=== PATIENT | male | born 1995 | race Hispanic/Latino ===

== ENCOUNTER 2018-07-20 07:36 | Emergency (ER) | payer OTHER ==
--- NOTE | 2018-07-20 09:39 | RAD REPORT ---
EXAM DESCRIPTION: RAD - Lumbar Spine 3 Views - 07/20/2018 8:22 am CLINICAL HISTORY: Back pain FINDINGS: The alignment of the lumbar spine is satisfactory. Mild compression fracture involves the superior endplate of the T12 vertebral body. It has developed since 2010. No fracture or dislocation involving the lumbar spine
--- NOTE | 2018-07-20 09:53 | EDPHYS ---
Physician Documentation [facility] Name: Kolby Martell III Age: 23 yrs Sex: Male : 1995 Arrival Date: 07/20/2018 Time: 07:42 Bed 23 Private MD: None, None ED Physician Mauricio Rodriguez HPI: 07/20 07:56 This 23 yrs old Male presents to ER via Ambulatory with complaints of Low Back rn Pain. 07:56 The patient presents with pain that is acute, and an injury. The symptoms are located rn in the low back. The pain does not radiate. Onset: The symptoms/episode began/occurred just prior to arrival. Associated signs and symptoms: Pertinent negatives: abdominal pain, chest pain, constipation, dysuria, fever, hematuria, incontinence, nausea, numbness, tingling, urinary retention, weakness. Severity of symptoms: At their worst the symptoms were mild, in the emergency department the symptoms have improved. The patient has not experienced similar symptoms in the past. The patient has not recently seen a physician. Reports fall from standing at work, slipped on wet surface, landed on back, reports intermittent low back pain, better with walking, worse when standing still, no lower ext injury or focal neurological complaints. . 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 - Social history:: Smoking status: Patient/guardian denies using tobacco. - Ebola Screening: : No symptoms or risks identified at this time. - Family history:: not pertinent. - Hospitalizations: : No recent hospitalization is reported. ROS: 07:56 Constitutional: Negative for fever, chills, and weight loss, Neck: Negative for injury, rn pain, and swelling, Cardiovascular: Negative for chest pain, palpitations, and edema, Respiratory: Negative for shortness of breath, cough, wheezing, and pleuritic chest pain, Abdomen/GI: Negative for abdominal pain, nausea, vomiting, diarrhea, and constipation, Back: + low back pain MS/Extremity: Negative for injury and deformity, Skin: Negative for injury, rash, and discoloration, Neuro: Negative for headache, weakness, numbness, tingling, and seizure. Exam: 07:56 Constitutional: This is a well developed, well nourished patient who is awake, alert, rn and in no acute distress. Neck: No midline cervical tenderness Back: No spinal tenderness. No costovertebral tenderness. Full range of motion. Skin: Warm, dry with normal turgor. Normal color with no rashes, no lesions, and no evidence of cellulitis. MS/ Extremity: Pulses equal, no cyanosis. Neurovascular intact. Full, normal range of motion. Equal circumference. Neuro: Awake and alert, GCS 15, oriented to person, place, time, and situation. Cranial nerves II-XII grossly intact. Motor strength 5/5 in all extremities. Sensory grossly intact. Cerebellar exam normal. Normal gait. Vital Signs: 07:49 BP 129 / 88; Pulse 80; Resp 18 S; Temp 97.0(TE); Pulse Ox 100% on R/A; Weight 58.97 kg aa5 (R); Height 5 ft. 2 in. (157.48 cm) (R); Pain 6/10; 07:49 Body Mass Index 23.78 (58.97 kg, 157.48 cm) aa5 MDM: 07:51 Patient medically screened. rn 09:46 Differential diagnosis: strain, fracture, contusion. Data reviewed: vital signs, nurses rn notes, radiologic studies, plain films, and as a result, I will discharge patient. Counseling: I had a detailed discussion with the patient and/or guardian regarding: the historical points, exam findings, and any diagnostic results supporting the discharge/admit diagnosis, radiology results, the need for outpatient follow up, to return to the emergency department if symptoms worsen or persist or if there are any questions or concerns that arise at home. Special discussion: I discussed with the patient/guardian in detail that at this point there is no indication for admission to the hospital. It is understood, however, that if the symptoms persist or worsen the patient needs to return immediately for re-evaluation. ED course: Pt with T12 compression fracture of unknown timing, would be atypical fracture for mechanism today, but not sure since last imaging several years ago and patient denies other injuries, either way, non-surgical and can f/u with pcp. . 07/20 07:55 Order name: XRAY Lumbar Spine (3 Views); Complete Time: 09:46 rn Administered Medications: No medications were administered Disposition: 07/20/18 09:52 Discharged to Home. Impression: Contusion of lower back and pelvis, T12 compression fracture. - Condition is Stable. - Discharge Instructions: Spinal Compression Fracture, Contusion. - Medication Reconciliation Form, Thank You Letter, Antibiotic Education, Prescription Opioid Use, Work release form form. - Follow up: Private Physician; When: As needed; Reason: Recheck today's complaints, Re-evaluation by your physician. - Problem is new. - Symptoms have improved. Signatures: Dispatcher [employer] EDMS Mauricio Rodriguez MD MD rn Calderon, Audri RN RN aa5 Sara Torres RN RN ss Corrections: (The following items were deleted from the chart) 10:05 09:52 07/20/2018 09:52 Discharged to Home. Impression: Contusion of lower back and ss pelvis; T12 compression fracture. Condition is Stable. Forms are Medication Reconciliation Form, Thank You Letter, Antibiotic Education, Prescription Opioid Use. Follow up: Private Physician; When: As needed; Reason: Recheck today's complaints, Re-evaluation by your physician. Problem is new. Symptoms have improved. rn
--- NOTE | 2018-07-20 09:53 | ER ---
Nurse's Notes [facility] Name: Kolby Martell III Age: 23 yrs Sex: Male : 1995 Arrival Date: 07/20/2018 Time: 07:42 Bed 23 Private MD: None, None Diagnosis: Contusion of lower back and pelvis;T12 compression fracture Presentation: 07/20 07:48 Presenting complaint: Patient states: "I slipped and fell at work". Pt c/o lower back aa5 pain. Denies LOC, denies head injury. Transition of care: patient was not received from another setting of care. Onset of symptoms was July 20, 2018. Risk Assessment: Do you want to hurt yourself or someone else? Patient reports no desire to harm self or others. Initial Sepsis Screen: Does the patient meet any 2 criteria? No. Patient's initial sepsis screen is negative. Does the patient have a suspected source of infection? No. Patient's initial sepsis screen is negative. Care prior to arrival: None. 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 - Social history:: Smoking status: Patient/guardian denies using tobacco. - Ebola Screening: : No symptoms or risks identified at this time. - Family history:: not pertinent. - Hospitalizations: : No recent hospitalization is reported. Screenin:00 Abuse screen: Denies threats or abuse. Nutritional screening: No deficits noted. aa5 Tuberculosis screening: No symptoms or risk factors identified. Fall Risk None identified. Assessment: 07:50 General: Appears uncomfortable, Behavior is calm, cooperative. Pain: Complains of pain aa5 in lumbar area Pain does not radiate. Pain currently is 6 out of 10 on a pain scale. Quality of pain is described as sharp, Pain began [employer] [place] post-fall Is continuous, Aggravated by increased activity, repositioning. Neuro: Level of Consciousness is awake, alert, obeys commands, Oriented to person, place, time, situation. Cardiovascular: Patient's skin is warm and dry. Respiratory: Airway is patent Respiratory effort is even, unlabored, Respiratory pattern is regular, symmetrical. GI: No signs and/or symptoms were reported involving the gastrointestinal system. : No signs and/or symptoms were reported regarding the genitourinary system. EENT: No signs and/or symptoms were reported regarding the EENT system. Derm: Skin is pink, warm \\T\\ dry. Musculoskeletal: Range of motion: intact in all extremities. 08:45 Reassessment: Patient appears in no apparent distress at this time. Patient is alert, ss oriented x 3, equal unlabored respirations, skin warm/dry/pink. 10:03 Reassessment: Patient appears in no apparent distress at this time. Patient and/or ss family updated on plan of care and expected duration. Pain level reassessed. Patient is alert, oriented x 3, equal unlabored respirations, skin warm/dry/pink. Vital Signs: 07:49 BP 129 / 88; Pulse 80; Resp 18 S; Temp 97.0(TE); Pulse Ox 100% on R/A; Weight 58.97 kg aa5 (R); Height 5 ft. 2 in. (157.48 cm) (R); Pain 6/10; 07:49 Body Mass Index 23.78 (58.97 kg, 157.48 cm) aa5 ED Course: 07:42 Patient arrived in ED. sb2 07:43 None, None is Private Physician. sb2 07:48 Triage completed. aa5 07:48 Arm band placed on. aa5 07:48 Patient has correct armband on for positive identification. Bed in low position. Call aa5 light in reach. Side rails up X 1. Adult w/ patient. 07:51 Christen Bal, MARSHALL is Primary Nurse. aa5 07:51 Mauricio Rodriguez MD is Attending Physician. rn 07:58 Patient moved to radiology via wheelchair. sw 08:00 No provider procedures requiring assistance completed. aa5 08:22 XRAY Lumbar Spine (3 Views) In Process Unspecified. EDMS 10:03 Patient did not have IV access during this emergency room visit. ss Administered Medications: No medications were administered Outcome: 09:52 Discharge ordered by . rn 10:03 Discharged to home ambulatory. ss 10:03 Condition: good 10:03 Discharge instructions given to patient, family, Instructed on discharge instructions, follow up and referral plans. medication usage, Demonstrated understanding of instructions, follow-up care, medications. 10:05 Patient left the ED. ss Signatures: Dispatcher [employer] EDMS Mauricio Rodriguez MD MD rn Calderon, Audri RN RN aa5 Sara Torres RN RN Junie Weston Sheri sb2 Corrections: (The following items were deleted from the chart) 07:51 07:48 Presenting complaint: Patient states: "I slipped and fell at work". Pt c/o lower aa5 back pain aa5
== END 2018-07-20 10:05 | disposition home or self-care (01) ==
LOC: ER 07:36
DX: S30.0XXA Contusion of lower back and pelvis, initial encounter (principal); S22.088A Other fracture of T11-T12 vertebra, initial encounter for closed fracture; W01.0XXA Fall on same level from slipping, tripping and stumbling without subsequent striking against object, initial encounter; Y99.0 Civilian activity done for income or pay
CPT/HCPCS: 72100; 99283

== ENCOUNTER → 2023-07-03 | Emergency (ER) | payer SELFPAY ==
[~2023-07-03] MED LIST: ACETAMINOPHEN 500 MG TAB ONE; DIPHENHYDRAMINE 50 MG/ML VIAL ONE; IBUPROFEN 400 MG TAB ONE; NA CHLORIDE 0.9% 1,000 ML ONE
--- OUTSIDE RECORDS SUMMARY | 2023-07-03 17:48 | XMS REPORT | Continuity of Care Document ---
Author Name Unknown Address [address] [place] [address] [facility] thconnect Address [address] [place] [address] Care Team Providers Care Barrel Lapper Name Role Phone Doctor Unassigned, Gail Attending Clinician FRANCESCA Escobar Attending Clinician Unavailable Problems Condition Name Condition Details Condition Category Status Onset Date Resolution Date Last Treatment Date Treating Clinician Comments Source No known active problems No known active problems Disease [facility] Allergies, Adverse Reactions, Alerts Allergy Name Allergy Type Status Severity Reaction(s) Onset Date Inactive Date Treating Clinician Comments Source NO KNOWN ALLERGIE S Drug Class Active [facility] Social History Social Habit Start Date Stop Date Quantity Comments Source Sex Assigned At [facility] Exposure to SARS-CoV-2 (event) Not sure [facility] Smoking Status Start Date Stop Date Source Unknown if ever smoked Un[facility] Medications Ordered Medication Name Filled Medication Name Start Date Stop Date Current Medication? Ordering Clinician Indication Dosage Frequency Signature (SIG) Comments Components Source No known medications No Un karon [facility] No known medications No Un karon [facility] Procedures Procedure Date / Time Performed Performing Clinician Source AUTHORIZATION FOR RELEASE OF PHI 2020-06-01 06:01:00 Doctor Unassigned, Gail [facility] ASSIGNMENT OF BENEFITS 2020-05-26 20:08:31 Docto r Unassigned, Gail [facility] Encounters Start Date/Time End Date/Time Encounter Type Admission Type Attending Clinicians Care Facility Care Department Encounter ID Source 2020-06-01 00:00:00 2020-06-01 00:00:00 Orders Only Doctor Unassigned, Gail [facility] [id number] [facility] 2020-06-01 00:00:00 2020-06-01 00:00:00 Orders Only Doctor Unassigned, Gail [facility] [id number] 2020-05-26 14:00:00 2020-05-26 14:00:00 Outpatient FRANCESCA [facility]ORJAS [facility] [id number] [facility] 2020-05-26 00:00:00 2020-05-26 00:00:00 Orders Only Doctor Unassigned, Gail [facility] [id number] [facility] 2020-05-26 00:00:00 2020-05-26 00:00:00 Orders Only Doctor Unassigned, Gail [facility] [id number]
[2023-07-03 18:52] LABS: Absolute Lymphocytes (CBC) 0.3 K/uL (0.7-4.9); Hematocrit 35.4 % (39.6-49.0); Lymphocytes % 5.7 % (15.3-44.8); MCV 83.5 fL (80-100); MPV 8.8 fL (7.6-11.3); Platelets 160 thou/uL (152-406); RBC Red Blood Cell Count 4.24 M/uL (4.33-5.43)
[2023-07-03 19:10] LABS: Albumin 2.6 g/dL (3.4-5.0); Bilirubin Total 2.2 mg/dL (0.2-1.0); Potassium 3.8 mEq/L (3.5-5.1); Protein, Total 5.6 g/dL (6.4-8.2)
[2023-07-03 19:16] LABS: SARS-CoV-2 Antigen Rapid Res Negative (Negative)
--- NOTE | 2023-07-03 21:08 | RAD REPORT ---
EXAM DESCRIPTION: CT - Abdomen Pelvis W Contrast - 07/03/2023 7:59 pm CLINICAL HISTORY: elevated LFTs, fever COMPARISON: No comparisons TECHNIQUE: Thin cut axial CT imaging of the abdomen and pelvis was performed following intravenous a dministration of 80 mL Isovue 300. Multiplanar reformats were generated and reviewed. All CT scans are performed using dose optimization technique as appropriate and may include automated exposure control or mA/KV adjustment according to patient size. FINDINGS: No suspicious findings in the lung bases. The liver shows atrophic changes along the posterior right lobe. Multiple hyperenhancing ill-defined lesions are present in the right and left liver lobe, the largest is present centrally in segment 4B, measuring 2.5 cm. These are not well characterized, but suggestive of small hemangiomas. Spleen is e nlarged, measuring 14.7 cm in long axis. Adrenal glands, and pancreas show no suspicious findings. Ga llbladder was surgically removed Symmetric renal function is seen with no hydronephrosis or suspicious renal mass. Mildly prominent small bowel loops in the left flank, with gradual transition to nondistended small b owel. Relatively long segment of mucosal hyperenhancement and somewhat nodular appearance of the colo lisa mucosa extending from the distal ascending colon to the mid to distal transverse colon. . No free air, free fluid, abnormal collections, or inflammatory stranding. No hernia, mass or bulky lymphaden opathy. The urinary bladder is without significant finding. No suspicious bony findings. Mild anterior wedge compression deformity at T12, with Schmorl's node fo rmation, favored to be chronic. IMPRESSION: Long segment of mucosal hyperenhancement and somewhat nodular appearance of the colonic mucosa, spanning the distal ascending colon to the mid to distal transverse colon. The appearance is not entirely specific, and could relate to sequelae of inflammation however possibility of neoplastic mucosal involvement cannot be excluded. Gastroenterology consultation is recommended. Mildly prominent small bowel loops in the left flank, may relate to ileus or diarrheal state. Multiple hyperenhancing ill-defined hepatic lesions, largest measuring 2.5 cm. While the appearance m ay suggest multiple hemangiomata, given the above colonic findings, these deserve further characteriz ation by liver protocol MRI, to exclude metastatic disease. Atrophic changes involving the posterior aspect of the right liver lobe. Splenomegaly. Etiology is un certain. Status post cholecystectomy.
--- NOTE | 2023-07-03 21:44 | EDPHYS ---
Physician Documentation [facility] Name: Kolby Martell III Age: 28 yrs Sex: Male : 1995 Arrival Date: 07/03/2023 Time: 17:34 Bed 11 Private MD: ED Physician Farhat Vazquez HPI: 07/03 19:01 This 28 yrs old Male presents to ER via Ambulatory with complaints of Fever, sb4 Numbness Of Hand, Chills. 19:01 Onset: The symptoms/episode began/occurred this morning. Modifying factors: Recent sb4 medications: acetaminophen, Denies contact with similarly ill indivduals. Denies recent travel. Associated signs and symptoms: Pertinent positives: arthralgias, chills, decreased appetite. The patient has not experienced similar symptoms in the past. The patient has not recently seen a physician. Historical: - Allergies: 17:41 Vancomycin; ll1 - PMHx: 17:41 Cancer; ll1 - Immunization history:: Adult Immunizations up to date. - Social history:: Smoking status: Patient denies any tobacco usage or history of. ROS: 19:01 Cardiovascular: Negative for chest pain, palpitations, and edema, Respiratory: Negative sb4 for shortness of breath, cough, wheezing, and pleuritic chest pain, Abdomen/GI: Negative for abdominal pain, nausea, vomiting, diarrhea, and constipation, 19:01 Constitutional: Positive for chills, fever, 19:01 Neuro: Positive for numbness, tingling, 19:01 All other systems are negative, Exam: 19:01 Constitutional: This is a well developed, well nourished patient who is awake, alert, sb4 and in no acute distress. Head/Face: Normocephalic, atraumatic. Eyes: Extra-ocular motions intact. Periorbital areas with no swelling, redness, or edema. ENT: Mucous membranes moist. Respiratory: Lungs have equal breath sounds bilaterally, clear to auscultation and percussion. No rales, rhonchi or wheezes noted. No increased work of breathing, no retractions or nasal flaring. Abdomen/GI: Soft, non-tender, no distension. Skin: Warm, dry with normal turgor. Normal color with no rashes, no lesions, and no evidence of cellulitis. MS/ Extremity: Pulses equal, no cyanosis. Neurovascular intact. Full, normal range of motion. Neuro: Awake and alert, GCS 15, oriented to person, place, time, and situation. Motor strength 5/5 in all extremities. Sensory grossly intact. 19:01 Cardiovascular: Rate: tachycardic, Rhythm: regular, Pulses: no pulse deficits are appreciated, Heart sounds: normal, Vital Signs: 17:55 BP 129 / 85; Pulse 126; Resp 18; Temp 99.5(O); Pulse Ox 100% on R/A; Weight 51.26 kg; me1 Height 5 ft. 2 in. ; 18:15 BP 109 / 75; Pulse 127; Resp 17; Pulse Ox 99% on R/A; me1 18:45 BP 114 / 80; Pulse 117; Resp 18; Pulse Ox 100% on R/A; me1 19:23 BP 114 / 80; Pulse 111; Resp 17; Pulse Ox 100% on R/A; me1 20:00 BP 112 / 76; Pulse 111; Resp 18; Pulse Ox 100% on R/A; me1 20:30 BP 109 / 75; Pulse 110; Resp 19; Pulse Ox 100% on R/A; me1 20:45 BP 114 / 79; Pulse 108; Resp 17; Pulse Ox 100% on R/A; me1 21:30 BP 125 / 91; Pulse 121; Resp 19; Pulse Ox 100% on R/A; me1 21:58 Temp 103.3(O); me1 22:30 Temp 102.4(O); me1 22:57 BP 114 / 84; Pulse 131; Resp 18; Temp 103.2(O); Pulse Ox 99% on R/A; me1 23:42 BP 113 / 83; Pulse 113; Resp 17; Pulse Ox 99% on R/A; me1 07/04 00:58 BP 107 / 82; Pulse 93; Resp 16 S; Pulse Ox 99% on R/A; as6 07/03 17:55 Body Mass Index 20.67 (51.26 kg, 157.48 cm) me1 MDM: 07/03 17:51 Patient medically screened. sb4 19:03 Differential diagnosis: covid, flu, anemia, viral syndrome. sb4 19:29 Data reviewed: vital signs, nurses notes, lab test result(s), radiologic studies. sb4 Historians other than the Patient: Parent: mom and dad. External Records Reviewed: Outpatient record: H\T\P and progress notes with Ivon connolly/onc 2020. Care significantly affected by the following chronic conditions: anemia, FAP. Counseling: I had a detailed discussion with the patient and/or guardian regarding. 21:46 ED course: Spoke at length with patient, mom, and dad that CT and lab findings are sb4 highly suspicious for malignancy and prompt follow-up is recommended to further evaluate. Patient is in no acute distress at this time. He has been mildly tachycardic but is otherwise completely asymptomatic. Heart rate has decreased after 2 L of fluid. He likely has a secondary viral illness accompanying. Will discharge home with copy of lab and radiology results. 07/03 18:08 Order name: CBC with Diff; Complete Time: 19:18 sb4 07/03 18:08 Order name: CMP; Complete Time: 19:11 sb4 07/03 18:08 Order name: SARS RAPID; Complete Time: 19:17 sb4 07/03 18:08 Order name: Flu; Complete Time: 19:17 sb4 07/03 22:02 Order name: Add On-Lab sb4 07/03 22:20 Order name: Bremer Screen; Complete Time: 22:41 EDMS 07/03 19:27 Order name: CT Abd/Pelvis - IV Contrast Only; Complete Time: 21:11 sb4 07/03 18:08 Order name: IV Saline Lock; Complete Time: 18:37 sb4 07/03 18:08 Order name: Labs collected and sent; Complete Time: 18:37 sb4 Administered Medications: 18:42 Drug: NS 0.9% IV 1000 ml IV at 1 bolus Per protocol; 1000 mL bolus Route: IV; Rate: 1 me1 bolus; Site: left antecubital; 20:28 Follow up: IV Status: Completed infusion; IV Intake: 1000ml me1 19:44 Drug: diphenhydrAMINE IVP 25 mg IVP once Route: IVP; Site: left antecubital; me1 20:28 Follow up: Response: No adverse reaction me1 19:45 Drug: NS 0.9% IV 1000 ml IV at 1 bolus Per protocol; 1000 mL bolus Route: IV; Rate: 1 me1 bolus; Site: left antecubital; 22:00 Follow up: IV Status: Completed infusion me1 22:04 Drug: Acetaminophen PO 1000 mg PO once Route: PO; me1 22:14 Follow up: Response: No adverse reaction me1 23:07 Drug: Ibuprofen PO 800 mg PO once Route: PO; me1 23:09 Follow up: Response: No adverse reaction me1 23:07 Drug: NS 0.9% IV 1000 ml IV at 1 bolus Per protocol; 1000 mL bolus Route: IV; Rate: 1 me1 bolus; Site: left antecubital; 07/04 01:00 Follow up: Response: No adverse reaction; IV Status: Completed infusion; IV Intake: as6 100ml Disposition: 07/03 19:21 Co-signature as Attending Physician, Shantanu Hickey MD I reviewed the patient's care rt provided by the Advanced Practice Provider and agree with the diagnosis and treatment plan. Disposition Summary: 07/03/23 23:42 Discharge Ordered Notes: Location: Home(07/03/23 23:42) sb4 Problem: new(07/03/23 23:42) sb4 Symptoms: have improved(07/03/23 23:42) sb4 Condition: Stable(07/03/23 23:42) sb4 Diagnosis - Viral infection, unspecified(07/03/23 23:42) sb4 - transaminitis, hepatic lesions sb4 Followup: sb4 - With: Private Physician - When: 2 - 3 days - Reason: Further diagnostic work-up, Recheck today's complaints, Re-evaluation by your physician Discharge Instructions: - Discharge Summary Sheet sb4 - Viral Illness, Adult sb4 Forms: - Medication Reconciliation Form sb4 - Thank You Letter sb4 - Antibiotic Education sb4 - Prescription Opioid Use sb4 - Patient Portal Instructions sb4 - Leadership Thank You Letter sb4 Signatures: Dispatcher [employer] Harley Clifford RN RN ll1 Fela Calvillo PA-C PAFranchescaC sb4 Shantanu Hickey MD MD rt Hansa Cerna RN RN me1 Baldo Bhat RN as6 Corrections: (The following items were deleted from the chart) 21:58 21:43 Home sb4 sb4 21:58 21:43 new sb4 sb4 21:58 21:43 are unchanged sb4 sb4 21:58 21:43 Stable sb4 sb4 21:58 21:43 transaminitis, hepatic lesions sb4 sb4 21:43 Viral infection, unspecified sb4 sb4
--- NOTE | 2023-07-03 21:44 | ER ---
Nurse's Notes [facility] Name: Kolby Martell III Age: 28 yrs Sex: Male : 1995 Arrival Date: 07/03/2023 Time: 17:34 Bed 11 Private MD: Diagnosis: Viral infection, unspecified;transaminitis, hepatic lesions Presentation: 07/03 17:55 Chief complaint: Patient states: fever and shaking this morning- took tylenol and it me1 went away but returned this afternoon and patient reports some numbness to his hands and states that his hands were pale at the time. Took tylenol again and symptoms have resolved. Coronavirus screen: Vaccine status: Patient reports receiving the 2nd dose of the covid vaccine. Ebola Screen: No symptoms or risks identified at this time. Initial Sepsis Screen: Does the patient meet any 2 criteria? HR > 90 bpm. No. Patient's initial sepsis screen is negative. Does the patient have a suspected source of infection? No. Patient's initial sepsis screen is negative. Risk Assessment: Do you want to hurt yourself or someone else? Patient reports no desire to harm self or others. Onset of symptoms was July 03, 2023. 17:55 Method Of Arrival: Ambulatory ms1 17:55 Acuity: FANI 4 me1 Triage Assessment: 17:55 General: Appears comfortable, slender, well groomed, well developed, well nourished, me1 Behavior is calm, cooperative, appropriate for age, Reports fever, chills and numbness and paleness that resolves with tylenol. Pain: Denies pain. Neuro: Level of Consciousness is awake, alert, obeys commands, Oriented to person, place, time, situation, Appropriate for age. Cardiovascular: Capillary refill < 3 seconds Patient's skin is warm and dry. Respiratory: Airway is patent Respiratory effort is even, unlabored, Respiratory pattern is regular, symmetrical. Derm:. Musculoskeletal: Reports numbness in right hand and left hand that occurred this afternoon with fever. Reports hands were pale as well at that time. Historical: - Allergies: 17:41 Vancomycin; ll1 - PMHx: 17:41 Cancer; ll1 - Immunization history:: Adult Immunizations up to date. - Social history:: Smoking status: Patient denies any tobacco usage or history of. Screenin:03 [facility] ED Fall Risk Assessment (Adult) History of falling in the last 3 months, me1 including since admission No falls in past 3 months (0 pts) Confusion or Disorientation No (0 pts) Intoxicated or Sedated No (0 pts) Impaired Gait No (0 pts) Mobility Assist Device Used No (0 pt) Altered Elimination No (0 pt) Score/Fall Risk Level 0 - 2 = Low Risk Maintained a safe environment, Provided non-skid footwear, Hourly rounding (assess needs \T\ fall precautionary measures) done. Abuse screen: Denies threats or abuse. Nutritional screening: No deficits noted. Tuberculosis screening: No symptoms or risk factors identified. Assessment: 18:03 General: See triage assessment. . me1 20:00 Reassessment: No changes from previously documented assessment. Patient and/or family me1 updated on plan of care and expected duration. Pain level reassessed. 22:00 Reassessment: No changes from previously documented assessment. Patient and/or family me1 updated on plan of care and expected duration. Pain level reassessed. 23:46 Reassessment: No changes from previously documented assessment. Patient and/or family me1 updated on plan of care and expected duration. Pain level reassessed. Patient states symptoms have improved. Vital Signs: 17:55 BP 129 / 85; Pulse 126; Resp 18; Temp 99.5(O); Pulse Ox 100% on R/A; Weight 51.26 kg; me1 Height 5 ft. 2 in. ; 18:15 BP 109 / 75; Pulse 127; Resp 17; Pulse Ox 99% on R/A; me1 18:45 BP 114 / 80; Pulse 117; Resp 18; Pulse Ox 100% on R/A; me1 19:23 BP 114 / 80; Pulse 111; Resp 17; Pulse Ox 100% on R/A; me1 20:00 BP 112 / 76; Pulse 111; Resp 18; Pulse Ox 100% on R/A; me1 20:30 BP 109 / 75; Pulse 110; Resp 19; Pulse Ox 100% on R/A; me1 20:45 BP 114 / 79; Pulse 108; Resp 17; Pulse Ox 100% on R/A; me1 21:30 BP 125 / 91; Pulse 121; Resp 19; Pulse Ox 100% on R/A; me1 21:58 Temp 103.3(O); me1 22:30 Temp 102.4(O); me1 22:57 BP 114 / 84; Pulse 131; Resp 18; Temp 103.2(O); Pulse Ox 99% on R/A; me1 23:42 BP 113 / 83; Pulse 113; Resp 17; Pulse Ox 99% on R/A; me1 07/04 00:58 BP 107 / 82; Pulse 93; Resp 16 S; Pulse Ox 99% on R/A; as6 07/03 17:55 Body Mass Index 20.67 (51.26 kg, 157.48 cm) me1 ED Course: 07/03 17:36 Patient arrived in ED. mr 17:39 Fela Calvillo PA-C is PHCP. sb4 17:39 Shantanu Hickey MD is Attending Physician. sb4 17:40 Arm band placed on. ll1 17:46 Hansa Cerna, RN is Primary Nurse. me1 17:59 Triage completed. me1 18:03 Patient has correct armband on for positive identification. Bed in low position. Call ms1 light in reach. Side rails up X 1. Provided Education on: POC. Verbalized understanding. . 18:03 No provider procedures requiring assistance completed. me1 18:37 CBC with Diff Sent. me1 18:37 CMP Sent. me1 18:37 Inserted saline lock: 22 gauge in left antecubital area, using aseptic technique. me1 18:37 Flu Sent. me1 18:37 SARS RAPID Sent. me1 20:01 CT Abd/Pelvis - IV Contrast Only In Process Unspecified. EDMS 21:13 Attending Physician role handed off by Shantanu Hickey MD sp3 21:13 Farhat Vazquez MD is Attending Physician. sp3 07/04 00:59 IV discontinued, intact, bleeding controlled, No redness/swelling at site. Pressure as6 dressing applied. Administered Medications: 07/03 18:42 Drug: NS 0.9% IV 1000 ml IV at 1 bolus Per protocol; 1000 mL bolus Route: IV; Rate: 1 me1 bolus; Site: left antecubital; 20:28 Follow up: IV Status: Completed infusion; IV Intake: 1000ml me1 19:44 Drug: diphenhydrAMINE IVP 25 mg IVP once Route: IVP; Site: left antecubital; me1 20:28 Follow up: Response: No adverse reaction me1 19:45 Drug: NS 0.9% IV 1000 ml IV at 1 bolus Per protocol; 1000 mL bolus Route: IV; Rate: 1 me1 bolus; Site: left antecubital; 22:00 Follow up: IV Status: Completed infusion me1 22:04 Drug: Acetaminophen PO 1000 mg PO once Route: PO; me1 22:14 Follow up: Response: No adverse reaction me1 23:07 Drug: Ibuprofen PO 800 mg PO once Route: PO; me1 23:09 Follow up: Response: No adverse reaction me1 23:07 Drug: NS 0.9% IV 1000 ml IV at 1 bolus Per protocol; 1000 mL bolus Route: IV; Rate: 1 me1 bolus; Site: left antecubital; 07/04 01:00 Follow up: Response: No adverse reaction; IV Status: Completed infusion; IV Intake: as6 100ml Medication: 07/03 18:03 VIS not applicable for this client. me1 Intake: 20:28 IV: 1000ml; Total: 1000ml. me1 07/04 01:00 IV: 100ml; Total: 1100ml. as6 Outcome: 07/03 21:43 Discharge ordered by MD. sb4 23:42 Discharge ordered by MD. sb4 07/04 00:59 Discharged to home ambulatory, with family, as6 Condition: stable Discharge instructions given to patient, family, Instructed on discharge instructions, follow up and referral plans. Demonstrated understanding of instructions, follow-up care, 00:59 Patient left the ED. as6 Signatures: Dispatcher [employer] [facility] Berna Hastings, Reg Reg mr Harley Piper, RN RN ll1 Farhat Vazquez MD MD sp3 Baldo Bhat RN RN as6 Fela Calvillo PA-Jaya PA-C sb4 Hansa Cerna, MARSHALL RN me1 Corrections: (The following items were deleted from the chart) 07/03 23:43 22:30 BP 114 / 84; Pulse 131bpm; Resp 18bpm; Pulse Ox 99% RA; Temp 103.2F Oral; me1 me1
[2023-07-04 03:58] VITALS: TEMP 103.2; O2SAT 99
[2023-07-04 04:04] VITALS: BP 107/82
== END ==
LOC: ER 17:34
DX: B34.9 Viral infection, unspecified (principal); R74.01 Elevation of levels of liver transaminase levels; K76.89 Other specified diseases of liver; Z11.52 Encounter for screening for COVID-19; Z88.3 Allergy status to other anti-infective agents
CPT/HCPCS: 36415; 74177; 80053; 85025; 86308; 87804; 87811; 96361; 96374; 99284; J1200; J7030; Q9967